=== PATIENT | male | born 1965 | race Caucasian/White ===

== ENCOUNTER 2016-12-17 21:26 | Emergency (ER) | payer OTHER ==
[~2016-12-17] VITALS: Ht 170.2 cm; Wt 81.6 kg
[2016-12-17 21:58] LABS: ABSOLUTE BASOPHIL COUNT 0.1 /CUMM (0.0-0.2); ABSOLUTE EOSINOPHIL COUNT 0.2 /CUMM (0.0-0.7); ABSOLUTE GRANULOCYTE CT 6.4 /CUMM (1.4-6.5); ABSOLUTE LYMPH COUNT 1.8 /CUMM (1.2-3.4); ABSOLUTE MONOCYTE COUNT 0.9 /CUMM (0.10-0.60); BASOPHIL % 0.9 % (0.0-2.0); EOSINOPHIL % 1.8 % (0-5); GRANULOCYTE % 68.2 % (42.2-75.2); HEMATOCRIT 46.5 % (42-52); MEAN CORPUSCULAR HGB 31.9 PG (27.0-31.0); MEAN CORPUSCULAR VOLUME 93.8 FL (80.0-94.0); MEAN PLATELET VOLUME 8.9 FL (7.4-10.4); PLATELET COUNT 245 /CUMM (130-400); RBC DISTRIBUTION WIDTH 12.4 % (11.5-14.5); RED BLOOD CELL CT 4.96 /CUMM (4.70-6.10); WHITE BLOOD CELL COUNT 9.4 /CUMM (4.8-10.8)
--- NOTE | 2016-12-17 22:29 | ED GENERAL ADULT ---
History of Present Illness General Chief Complaint: General Adult Stated Complaint: TINGLING IN CHEST/SOB Source: patient, family Exam Limitations: no limitations Vital Signs & Intake/Output Vital Signs & Intake/Output Vital Signs Date Time Temp Pulse Resp B/P Pulse O2 O2 Flow FiO2 Ox Delivery Rate 12/18 0215 98.3 50 18 119/73 97 Room Air 12/17 2325 65 18 131/83 95 Room Air 12/17 2139 98.8 74 18 190/115 98 Room Air ED Intake and Output 12/18 0000 12/17 1200 Intake Total Output Total Balance Patient 180 lb Weight Triage Note: 51 YEAR OLD MALE STATES THAT HE HAS A HISTORY OF ASTHMA AND THAT FOR THE PAST COUPLE OF WEEKS HE HAS BEEN HAVING EPISODES OF SOB ON EXERTION AND FEELS WHAT PT STATES IS NOT A PAIN BUT IT FEELS LIKE SOMEONE IS PUSHING ON HIS L SISDE CHEST. PT STATES THAT HE WAS WORKING OUT YESTERDAY AND HAD AN EPSIODE OF SOB. PT WAS RECENTLY CHANGED TO BRIO BY HIS PULMONARY DOCTOR. DENIES N/V, DENIES DIAPHORESIS, BUT HAS BEEN FEELING INCREASED PALPITATIONS. Triage Nurses Notes Reviewed? yes HPI: Patient is a 51-year-old male presents complaining of dyspnea times one week. Patient reports that he has mild dyspnea chronically secondary to his asthma, for the past one week dyspnea is in the greater than his baseline. Dyspnea mild at rest, worsens with using his elliptical machine and walking up his driveway. Patient saw his survey research analyst couple of weeks ago and was placed on Breo. Patient's blood pressure was 160/90 at his survey research analyst. Patient reports that he also checked his blood pressure at a pharmacy and was found to have similar blood pressure 160/90 couple of days ago. Today while patient was shoveling snow he had a tingling sensation to his left anterior chest wall. Patient reports that this started between noon and 3 PM today. Sensation is currently minimal, worsens when he presses on his chest wall. Patient is unsure of any family medical history. Positive palpitations, patient reports he has chronic palpitations but he has been feeling more skipped beats for the past one week. Patient denies cough, wheezing, fevers, chills Patient has an appointment with a primary care doctor on 12/19/16 (DAVEY BA,DANIEL) Past History Travel History Traveled to [place] past 21 day No Medical History Any Pertinent Medical History? see below for history Neurological: NONE EENT: NONE Cardiovascular: hyperlipidemia, svt WITH CARDIAC ABLATION IN 1991, heart murmur Respiratory: asthma Gastrointestinal: NONE Hepatic: NONE Renal: NONE Musculoskeletal: NONE Psychiatric: NONE Endocrine: NONE Blood Disorders: NONE Cancer(s): NONE Surgical History Surgical History: cardiac ablation Psychosocial History What is your primary language Hungarian Tobacco Use: Never used ETOH Use: denies use Illicit Drug Use: denies illicit drug use Family History Hx Contributory? No (DANIEL GOTTLIEB) Review of Systems Review of Systems Constitutional: Denies: chills, fever, weakness. EENTM: Reports: no symptoms. Respiratory: Reports: see HPI, short of breath. Denies: cough, wheezing. Cardiovascular: Reports: see HPI. GI: Denies: abdominal pain, nausea, vomiting. Genitourinary: Reports: no symptoms. Musculoskeletal: Reports: no symptoms. Skin: Reports: no symptoms. Neurological/Psychological: Reports: no symptoms. Hematologic/Endocrine: Reports: no symptoms. Immunologic/Allergic: Reports: no symptoms. (DANIEL GOTTLIEB) Physical Exam Physical Exam General Appearance: well developed/nourished, alert, awake Head: atraumatic, normal appearance Eyes: Bilateral: normal appearance, PERRL, EOMI. Ears, Nose, Throat: normal pharynx, normal ENT inspection, hearing grossly normal Neck: normal inspection, supple, full range of motion Respiratory: normal breath sounds, chest non-tender, no respiratory distress, lungs clear Cardiovascular: regular rate/rhythm (occasional premature beat), murmur Peripheral Pulses: 2+ dorsalis pedis (R), 2+ dorsalis pedis (L) Gastrointestinal: soft, non-tender Back: normal inspection, normal range of motion Extremities: normal inspection, normal capillary refill, normal range of motion, no edema Neurologic/Psych: no motor/sensory deficits, awake, alert, oriented x 3, normal gait Skin: intact, normal color, warm/dry Lymphatic: no anterior cervical kal Core Measures ACS in differential dx? Yes ASA ordered for poss ACS? No-ACS ruled out (DANIEL GOTTLIEB) Core Measures ACS in differential dx? No CVA/TIA Diagnosis: No Severe Sepsis Present: No Septic Shock Present: No (ZOHRA REYES,MARIO Alvarado) Progress Differential Diagnoses I considered the following diagnoses in my evaluation of the patient: ACS, asthma, CHF, pneumothorax, PE, exercise intolerance Diagnostic Imaging: Viewed by Me: Radiology Read. Discussed w/RAD: Radiology Read. Radiology Impression: PATIENT: RAMRIO COSTELLO PRESENT AGE: 51 PATIENT ACCOUNT NO: [id number] : 67 LOCATION: [facility] ORDERING PHYSICIAN: DANIEL BA SERVICE DATE: 12/17/16 EXAM TYPE: RAD - XRY-CHEST XRAY, PA AND LATERAL EXAMINATION: XR CHEST CLINICAL INFORMATION: Dyspnea. COMPARISON: None TECHNIQUE: 2 views of the chest were obtained. FINDINGS: The lungs are well expanded. Minimal linear left basilar atelectasis. There is no focal consolidation, edema, or effusion. No pneumothorax. The cardiomediastinal silhouette is within normal limits. No acute osseous abnormality. IMPRESSION: No acute pulmonary findings. DICTATED BY: DILEEP LACEY MD DATE/TIME DICTATED:12/17/162306 FINE ARTS CHAIR: PRANAY DATE/TIME TRANSCRIBED:12/17/162306 CONFIDENTIAL, DO NOT COPY WITHOUT APPROPRIATE AUTHORIZATION. <Electronically signed in Other Vendor System> SIGNED BY: ABHIJIT REYES,DILEEP 12/17/162312 Initial ED EKG: normal axis, normal intervals, normal p-waves, normal QRS complex, normal sinus rhythm, no ST T wave changes Rhythm Strip: sinus bradycardia, PVC (DAVEY BA,DANIEL) Differential Diagnoses I considered the following diagnoses in my evaluation of the patient: Her nares syndrome, acute UT, dysrhythmia, electrolyte abnormality, CHF, pneumonia, pneumothorax Plan of Care: Orders Procedure Date/time Status TROPONIN LEVEL 12/18 0100 Active EKG 12/18 010 Active Add-on Test (ER Only) 12/17 2242 Active Telemetry/Assayer 12/17 2242 Active URINALYSIS 12/17 2242 Complete B-TYPE NATRIURETIC PEP (BNP) 12/18 2147 Complete TROPONIN LEVEL 12/17 2141 Complete COMPREHENSIVE METABOLIC PANEL 12/17 2141 Complete CBC WITHOUT DIFFERENTIAL 12/17 2141 Complete EKG 12/17 2126 Active Laboratory Tests 12/17/169: Urine Color YEL, Urine Clarity CLEAR, Urine pH 6.0, Ur Specific Ord >= 1.030 , Urine Protein NEG, Urine Ketones TRACE H, Urine Nitrite NEG, Urine Bilirubin NEG, Urine Urobilinogen 0.2, Ur Leukocyte Esterase NEG, Ur Microscopic EXAM NOT REQUIRED, Urine Hemoglobin NEG, Urine Glucose NEG 12/17/16 2148: Anion Gap 10, Estimated GFR 54 L, BUN/Creatinine Ratio 19.3, Glucose 96, Calcium 9.6, Total Bilirubin 0.7, AST 17, ALT 26, Alkaline Phosphatase 57, Troponin I < 0.01, Qzi-K-Yzbzfulhexz Pept 49.1, Total Protein 7.4, Albumin 4.6, Globulin 2.8, Albumin/Globulin Ratio 1.6, CBC w Diff NO MAN DIFF REQ, RBC 4.96, MCV 93.8, MCH 31.9 H, RDW 12.4, MPV 8.9, Gran % 68.2, Lymphocytes % 19.4 L, Monocytes % 9.7 H, Eosinophils % 1.8, Basophils % 0.9, Absolute Granulocytes 6.4, Absolute Lymphocytes 1.8, Absolute Monocytes 0.9 H, Absolute Eosinophils 0.2, Absolute Basophils 0.1, PUBS MCHC 34.0 12/18/2016 12:06:30 AM: Results of labs and imaging discussed with patient. Plan repeat EKG and troponin. Discussed with and signed out to Dr. Singleton. (DANIEL GOTTLIEB) Repeat EKG: unchanged Comments: 12/18/2016 2:15:32 AM patient's case signed out to me by PA at shift manager change. I have no updated Ramiro on his test results. He is without complaints currently. Of note, he states that his heart rate is often in the low 50s and even into the upper 40s. He states this has been occurring since his ablation many years ago. I feel he is stable for outpatient follow-up with his primary care doctor on and a manufacturing tech as well (intends to see Dr. Og Olivera). (ZOHRA REYES,MARIO Alvarado) Departure Departure Condition: Stable Departure Forms: Customer Survey General Discharge Information (DANIEL GOTTLIEB) Departure Disposition: HOME OR SELF CARE Clinical Impression Primary Impression: Dyspnea Qualifiers: Dyspnea type: unspecified Qualified Code: R06.00 - Dyspnea, unspecified Referrals: PATIENT HAS NO PRIMARY CARE DR (PCP/Family) LOUISA CRISTINA MD Additional Instructions: Follow Up with your primary care doctor as scheduled this week. Follow-up with Dr. Olivera as discussed as soon as possible. Rest, avoid exertion. Return if any concerns or sudden worsening. Thank you for choosing the [facility] Emergency Department for your care. It was a pleasure to serve you today. Mario Singleton M.D. [facility] Please note that there might be incidental findings in your evaluation that are unrelated to the current emergency department visit. Please notify your primary care doctor about this emergency department visit in order to obtain and review all of the testing performed so that these incidental findings can be monitored as needed. PA/DEAF TEACHER Co-Sign Statement Statement: ED Attending supervision documentation- [] I saw and evaluated the patient. I have also reviewed all the pertinent lab results and diagnostic results. I agree with the findings and the plan of care as documented in the PA's/DEAF TEACHER's documentation. [x] I have reviewed the ED Record and agree with the PA's/DEAF TEACHER's documentation. [] Additions or exceptions (if any) to the PAs/DEAF TEACHER's note and plan are summarized below: [] (ZOHRA REYES,MARIO Alvarado) Critical Care Note Critical Care Note Critical Care Time: non-applicable (ZOHRA REEYS,MARIO Alvarado)
--- NOTE | 2016-12-17 23:13 | RADIOLOGY REPORT ---
EXAMINATION: XR CHEST CLINICAL INFORMATION: Dyspnea. COMPARISON: None TECHNIQUE: 2 views of the chest were obtained. FINDINGS: The lungs are well expanded. Minimal linear left basilar atelectasis. There is no focal consolidation, edema, or effusion. No pneumothorax. The cardiomediastinal silhouette is within normal limits. No acute osseous abnormality. IMPRESSION: No acute pulmonary findings.
[2016-12-18 02:15] VITALS: BP 119/73
== END 2016-12-18 02:36 ==
LOC: ERH 21:26
PROVIDERS: Emergency Medicine
DX: R06.00 Dyspnea, unspecified (principal)
CPT/HCPCS: 81003; 93005; 93010